=== PATIENT | female | born 1950 | race Caucasian/White ===

== ENCOUNTER → 2020-03-17 | Outpatient (CLI) | payer OTHER, BC ==
[~2020-03-17] MED LIST: 5-HTP100 MG PO; CALCIUM; CALCIUM PO; CO Q-1010 MG PO; CO Q-10100 MG PO; ESTER-C 500 MG1 EACH PO; FISH OIL 1,0001 EAC5 PO; GINGER250 MG PO; HYDROCODONE-AP1 EAC6 PO; LUTEIN20 M1 PO; LUTEIN6 MG PO; MULTIVITAMINS PO; NORCO 10-325 T1 EACH PO; NORCO 5-325 TA1 EACH PO; VITAMIN D 5050000 I1 PO; VITAMIN D1000 UNI1 PO; VITAMIN E400 UNIT PO; VITAMINC500 PO; ZENPEP DR 5,001 EACH PO; [UNRECOGNIZED DRUG - REMARK] PO
== END ==
LOC: LAB 08:08
PROVIDERS: ATTEND Anesthesiology
DX: Z01.812 Encounter for preprocedural laboratory examination (principal); Z20.828 Contact with and (suspected) exposure to other viral communicable diseases